=== PATIENT | male | born 1940 | race African-American/Black ===

== ENCOUNTER → 2017-04-21 | Day surgery (SDC) | payer MEDICARE ==
[~2017-04-21] MED LIST: IV RINGERS,LACTATED 1000ML 1,000 ML IV ONE; LIDOCAINE 2% PF Vial for OR 5 ML VIAL. ONE; METF500T9 PO; METO-239 PO; OLME20TA19 PO; PIOG30TA41 PO; PROPOFOL 40 ML IV ONE; SIMV40TA3 PO; TERA10CA3 PO
[2017-04-21 09:15] VITALS: BP 124/75
--- NOTE | 2017-04-21 09:51 | HP ---
ADMIT DATE: 04/21/2017 CHIEF COMPLAINT: History of colonic polyps. HISTORY OF PRESENT ILLNESS: This is a 77-year-old -Israeli male with past medical history of diabetes, hypertension, hyperlipidemia, gastroesophageal reflux disease and post-colonic polyps; is seen for screening colon exam, has had history of polyps with last exam being approximately 5 years ago. There has been no melena and/or hematochezia and now diarrhea, constipation, weight and appetite have been stable. PAST MEDICAL HISTORY: Diabetes, hypertension, hyperlipidemia and gastroesophageal reflux disease. ALLERGIES: None. MEDICATIONS: Include metformin, metoprolol, Benicar, Actos, simvastatin and terazosin. SOCIAL HISTORY: Nonsmoker and nondrinker. FAMILY HISTORY: Noncontributory. REVIEW OF SYSTEMS: Per records. PHYSICAL EXAMINATION: GENERAL: Reveals a well-nourished, well-developed -Israeli male, alert, cooperative, in no acute distress. VITAL SIGNS: Temperature 97.6, pulse 117 and respirations 18. HEENT: Normocephalic and atraumatic head. Pupils and extraocular muscles not tested. Sclerae anicteric. NECK: Supple. LUNGS: Clear. CARDIOVASCULAR: Reveals S1 and S2 without S3, S4 or appreciable murmur. ABDOMEN: Reveals a soft abdomen. Normal bowel sounds, without appreciable hepatosplenomegaly. EXTREMITIES: Reveals no cyanosis, clubbing or edema. IMPRESSION: Colorectal screening with history of colon polyps. Surveillance exam was recommended at this time. Risks and benefits of procedure including risk of perforation have been discussed with the patient, is willing to proceed. I would like to thank Dr. Tyrel Ferrari for allowing us to consult and participate in the patient's care. MARIE STRATTON MD DR: DARCIE/jeanne JOB#: [id number] / [id number]
== END | disposition home or self-care (01) ==
LOC: ENDOS 07:12
PROVIDERS: ATTEND Internal Medicine Gastroenterology
DX: Z09 Encounter for follow-up examination after completed treatment for conditions other than malignant neoplasm (principal); Z86.010 Personal history of colon polyps; K64.0 First degree hemorrhoids; K57.30 Diverticulosis of large intestine without perforation or abscess without bleeding; E78.00 Pure hypercholesterolemia, unspecified; I10 Essential (primary) hypertension; K21.9 Gastro-esophageal reflux disease without esophagitis; E11.9 Type 2 diabetes mellitus without complications; F41.9 Anxiety disorder, unspecified; F17.200 Nicotine dependence, unspecified, uncomplicated; Z86.39 Personal history of other endocrine, nutritional and metabolic disease
CPT/HCPCS: 45378; 82962; J2704; J2001

== ENCOUNTER → 2019-08-08 | Day surgery (SDC) | payer MEDICARE ==
[~2019-08-08] MED LIST changes: -IV RINGERS,LACTATED 1000ML 1,000 ML IV ONE; +IV RINGERS,LACTATED 1000ML 1,000 ML IV SCH; -LIDOCAINE 2% PF Vial for OR 5 ML VIAL. ONE; +METF500T11 PO; -METF500T9 PO; +OLME20TA17 PO; -OLME20TA19 PO; -PROPOFOL 40 ML IV ONE; +SIMV40TA18 PO; -SIMV40TA3 PO
[2019-08-08 13:28] VITALS: BP 149/83
--- NOTE | 2019-08-09 16:06 | PATHOLOGY ---
[facility] Accession Number: [id number] . 01 Material submitted: . esophagus - DISTAL ESOPHAGUS BX. Modifiers: distal . 01 Clinical history: . Dysphagia . 02 Diagnosis: Esophageal biopsies, distal esophagus: - Reflux esophagitis. . (JPM:enrique; 08/09/2019) S 08/09/2019 1410 Local . 02 Comment: Sections of the distal esophageal biopsy reveal segments of largely tangentially oriented hyperplastic squamous esophageal mucosa. The findings are compatible with reflux esophagitis. There is no evidence of Howell's change, dysplasia, or malignancy. (JPM:enrique; 08/09/2019) . 02 Electronically signed: . Edwar Mckeon MD, Pathologist NPI- [id number] . 01 Gross description: . The specimen is received in formalin, labeled "Alfredo Guo, distal esophagus biopsy". Received are five segments of pale trejo soft tissue ranging in size from 0.2 to 0.8 cm in maximum dimensions. The specimen is submitted entirely in cassette A1. ([facility]; 08/08/2019) QAC/QAC 08/08/2019 1707 Local . 02 Pathologist provided ICD-10: K21.0 . 02 CPT . 172822 Specimen Comment: A courtesy copy of this report has been sent to [phone], [phone] Specimen Comment: [id number] Specimen Comment: Report sent to / DR MEZA Performed at: 01 [facility] [address], [place] [id number] MD Mode Michele MD Phone: [phone] Performed at: 02 [facility] [address] [place], [place] [id number] MD Edwar Mckeon MD Phone: [phone]
== END ==
LOC: ENDOS 11:00
PROVIDERS: ATTEND Internal Medicine Gastroenterology
DX: R13.10 Dysphagia, unspecified (principal); K21.0 Gastro-esophageal reflux disease with esophagitis; F41.9 Anxiety disorder, unspecified; E11.9 Type 2 diabetes mellitus without complications; F15.90 Other stimulant use, unspecified, uncomplicated; Z72.89 Other problems related to lifestyle; Z79.84 Long term (current) use of oral hypoglycemic drugs
CPT/HCPCS: 43239; 43450; 82962; 88305

== ENCOUNTER → 2021-02-17 | Outpatient (CLI) | payer MEDICARE ==
[2019-08-08 13:28] VITALS: BP 149/83
[~2021-02-17] MED LIST changes: -IV RINGERS,LACTATED 1000ML 1,000 ML IV SCH; +METF-658 PO; -METF500T11 PO
--- NOTE | 2021-02-17 13:41 | KCIC ---
EXAM: AP, oblique and lateral views of the left foot DATE: 02/17/2021 8:20 AM INDICATION: Reason: PAIN IN LEFT 2ND TOE, SWELLING AND BRUISING, STUBBED TOE / Spl. Instructions: / History: COMPARISON: No Prior FINDINGS/ IMPRESSION: There is a transverse fracture through the middle phalanx of the left second toe with moderate associ ated soft tissue swelling. Vascular calcifications are seen. Small plantar calcaneal enthesophyte. Electronically signed by: Justice Chaudhary MD (02/17/2021 1:39 PM) [id number]
== END ==
LOC: KCIC 08:17
PROVIDERS: ATTEND Family Medicine
DX: S92.912A Unspecified fracture of left toe(s), initial encounter for closed fracture (principal); S90.122A Contusion of left lesser toe(s) without damage to nail, initial encounter; M77.32 Calcaneal spur, left foot; M25.475 Effusion, left foot; X58.XXXA Exposure to other specified factors, initial encounter; Y93.89 Activity, other specified; Y92.89 Other specified places as the place of occurrence of the external cause; Y99.8 Other external cause status
CPT/HCPCS: 73630